=== PATIENT | female | born 1985 | race Caucasian/White ===

== ENCOUNTER → 2018-05-19 | Outpatient (CLI) | payer OTHER | LOC: FIMAGING 14:13 | PROVIDERS: ATTEND Student in an Organized Health Care Education/Training Program | DX: O09.521 Supervision of elderly multigravida, first trimester (principal); O09.291 Supervision of pregnancy with other poor reproductive or obstetric history, first trimester; Z3A.11 11 weeks gestation of pregnancy ==

== ENCOUNTER → 2018-06-20 | Outpatient (CLI) | payer OTHER | LOC: FIMAGING 07:34 | PROVIDERS: ATTEND Student in an Organized Health Care Education/Training Program | DX: O02.1 Missed abortion (principal); Z36.89 Encounter for other specified antenatal screening; Z3A.16 16 weeks gestation of pregnancy; O09.522 Supervision of elderly multigravida, second trimester ==